=== PATIENT | female | born 2005 | race Two or more races ===

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

== ENCOUNTER 2023-05-30 18:18 | Emergency (ER) | payer MEDICAID ==
[~2023-05-30] VITALS: Ht 157.5 cm; Wt 60.2 kg
[~2023-05-30 18:18] MED LIST changes: +OMEP-434 PO
[2023-05-30 20:13] LABS: Basophils # (auto) 0 10 ^3/uL (0-0.2); Basophils % (auto) 0.5 % (0.0-2.0); Eosinophils # (auto) 0.2 10 ^3/uL (0-0.8); Eosinophils % (auto) 2.1 % (0.0-7.0); Hematocrit 39.5 % (36.0-46.0); Hemoglobin 13.6 g/dL (12.2-16.2); Lymphocytes # (auto) 2.8 10 ^3/uL (0.4-5.4); Mean Corpuscular Hemoglobin 32.2 pg (28.0-32.0); Mean Corpuscular Hgb Conc. 34.3 g/dL (32.0-36.0); Mean Corpuscular Volume 93.8 fL (80.0-100.0); Monocytes # (auto) 0.6 10 ^3/uL (0-1.3); Monocytes % (auto) 7.9 % (0.0-12.0); Neutrophils % (auto) 52.5 % (37.0-80.0); Red Blood Cells 4.22 10^6/uL (4.0-5.20); Red Cell Distribution Width 12.5 % (11.8-14.3); White Blood Cell 7.6 10^3/uL (4.4-10.8)
[2023-05-30 20:15] LABS: Urine Bacteria NONE SEEN /hpf (None Seen); Urine Blood 2+ /uL (Negative); Urine Clarity Clear (Clear); Urine Color Yellow (Yellow); Urine Mucus FEW (None Seen); Urine Protein, UAD 1+ (Negative); Urine Specific Gravity 1.032 (1.001-1.035); Urine WBC 3 /hpf (0 - 5)
[2023-05-30 20:43] LABS: Alanine Aminotransferase 12 U/L (7-40); Albumin 4.7 g/dL (3.2-4.8); Alkaline Phosphatase 50 U/L (46-116); Anion Gap 6.5 (5-15); Aspartate Aminotransferase < 8 U/L (13-40); BUN/Creatinine Ratio 13.5 (10.0-20.0); Bilirubin, Total 0.8 mg/dL (0.2-1.0); Blood Urea Nitrogen 12 mg/dL (9-23); Calcium 9.7 mg/dL (8.5-10.1); Carbon Dioxide 28.5 mmol/L (20-30); Chloride 105 mmol/L (98-107); Glucose 91 mg/dL (74-106); Lipase 36 U/L (12-53); Potassium 3.8 mmol/L (3.5-5.1); Sodium 140 mmol/L (136-145); Total Protein 7.1 g/dL (5.7-8.2)
[2023-05-30] MEDS ORDERED: DICY10CA PO (22:27)
[2023-05-30] MEDS ORDERED: FAMO20TA10 PO (22:27)
[2023-05-30] MEDS ORDERED: ZOFR4T PO (22:27)
[2023-05-30] MEDS ORDERED: CEPH500C PO (22:27)
[2023-05-30] MEDS ORDERED: ACETAMINOPHEN 325 MG TAB PO ONE (22:30)
[2023-05-30] MEDS ORDERED: DONNATAL 5ml ORAL Elix (BELLADONNA ALK-PHENOBARB) PO ONE (22:30)
[2023-05-30] MEDS ORDERED: LIDOCAINE VISCOUS 2% 15ML UD MT ONE (22:30)
[2023-05-30] MEDS ORDERED: MAALOX PLUS or MAALOX 30 ML PO ONE (22:30)
[2023-05-30] MEDS ORDERED: ONDANSETRON ODT 4 MG TAB PO ONE (22:30)
[2023-05-30 23:43] VITALS: BP 138/75; PULSE 68; RESP 16; TEMP 98.2; O2SAT 99
== END 2023-05-30 23:46 | disposition home or self-care (01) ==
LOC: ER 18:18
DX: N39.0 Urinary tract infection, site not specified (principal); K29.70 Gastritis, unspecified, without bleeding; R10.13 Epigastric pain; R10.33 Periumbilical pain; R11.2 Nausea with vomiting, unspecified; R19.7 Diarrhea, unspecified; Z79.899 Other long term (current) drug therapy
CPT/HCPCS: 36415; 74176; 80053; 81001; 83690; 85025; 99284; Q0162

== ENCOUNTER 2023-08-03 18:11 | Emergency (ER) | payer MEDICAID ==
[~2023-08-03] VITALS: Ht 157.5 cm; Wt 64.2 kg
[~2023-08-03 18:11] MED LIST changes: +CEPH500C PO; +DICY10CA PO; +FAMO20TA10 PO; +ZOFR4T PO
[2023-08-03 19:12] VITALS: BP 124/80; PULSE 76; RESP 16; TEMP 97.9; O2SAT 97
[2023-08-03] MEDS ORDERED: HYDROcodone-ACET 5/325MG TAB PO ONE (21:45)
[2023-08-03] MEDS ORDERED: IBUP1TAB5 PO (22:17)
[2023-08-03] MEDS ORDERED: CYCL-839 PO (22:17)
== END 2023-08-03 23:16 | disposition home or self-care (01) ==
LOC: ER 18:11
DX: S06.0X0A Concussion without loss of consciousness, initial encounter (principal); S13.9XXA Sprain of joints and ligaments of unspecified parts of neck, initial encounter; S43.402A Unspecified sprain of left shoulder joint, initial encounter; S20.212A Contusion of left front wall of thorax, initial encounter; S70.02XA Contusion of left hip, initial encounter; Z79.1 Long term (current) use of non-steroidal anti-inflammatories (NSAID); Z79.2 Long term (current) use of antibiotics; Z79.899 Other long term (current) drug therapy; V49.9XXA Car occupant (driver) (passenger) injured in unspecified traffic accident, initial encounter; Y93.89 Activity, other specified; Y92.410 Unspecified street and highway as the place of occurrence of the external cause; Y99.8 Other external cause status
CPT/HCPCS: 70450; 71250; 72125; 73030; 74176

== ENCOUNTER 2024-08-26 16:26 | Emergency (ER) | payer MEDICAID ==
[~2024-08-26] VITALS: Ht 182.9 cm; Wt 115.8 kg
[~2024-08-26 16:26] MED LIST changes: +CYCL-839 PO; +IBUP1TAB5 PO
--- NOTE | 2024-08-26 16:37 | ED.PDOC ---
GI ASSESSMENT HPI Comments 3 days of epigastric pain, with nausea, vomiting, diarrhea. no radiation. no sick contacts Chief Complaint: epigastric pain Time Seen by MD: 16:31 Primary Care Provider: NONE Reviewed Notes: Nurses Notes Allergies: Coded Allergies: NO KNOWN ALLERGIES (Unverified , 08/31/14) Home Meds Active Scripts Cyclobenzaprine Hcl (Cyclobenzaprine Hcl) 10 Mg Tab, 1 TAB PO Q8HR, #15 TAB As needed for muscle spasm Prov:FREDY POTTER Jaquelin [employer]TEGRITY ENGINEER 08/03/23 Ibuprofen Micronized (Ibuprofen) 600 Mg Tab, 1 TAB PO Q6HR, #20 TAB As needed for pain Prov:FREDY POTTER Q MECH[employer]ICAL INTEGRITY ENGINEER 08/03/23 Cephalexin Monohydrate (Cephalexin) 500 Mg Cap, 1 CAP PO QID for 10 Days, #40 CAP Prov:FREDY POTTER Jaquelin [employer] INTE[employer] ENGINEER 05/30/23 Famotidine (PEPCID TABLET) 20 Mg Tb, 1 TAB PO BID for 30 Days, #60 TAB Prov:FREDY POTTER Jaquelin [employer] INTE[employer] ENGINEER 05/30/23 Dicyclomine Hcl (BENTYL CAPSULE) 10 Mg Cp, 2 CAP PO Q8HR, #30 CAP as needed for abdominal cramping Prov:FREDY POTTER Jaquelin [employer]CH[employer] INTEGRITY ENGINEER 05/30/23 Ondansetron Odt 4MG Tab (ZOFRAN PO) 4 Mg Tb, 1 TAB PO Q8HR, #20 TAB ODT TAB-DISSOLVE IN MOUTH, THEN SWALLOW as needed for nausea vomiting Prov:FREDY POTTER Jaquelin [employer] INTE[employer] ENGINEER 05/30/23 Omeprazole Magnesium (Omeprazole) 20 Mg Tab, 40 MG PO DAILY, #30 TAB Prov:VIKI CANNON 12/22/22 Nitrofurantoin Monohydrate Mac (Macrobid) 100 Mg Cap, 100 MG PO BID for 5 Days, #10 CAP Prov:MICHELLE DONIS MD 10/23/21 Information Source: Patient, Relative (Mother) Mode of Arrival: Ambulatory Timing: Days (3) Duration: Since onset Quality: Aching Vomitus: Bilious Stool: Loose Severity: Moderate Recent: None Recent Hx of: None Pain Location: Epigastric Modifying Factors: Nothing Associated sign and symptoms: Nausea, Vomiting, Diarrhea Past Medical History PAST MEDICAL HISTORY: Seizures Surgical History: Denies all surgeries DAIRY LABORATORY TECHNICIAN History: No Pertinent DAIRY LABORATORY TECHNICIAN History Family History Family History: Reviewed,noncontributory to illness, Family hx of Cancer, Family hx of HTN Family History (Other): Seizure (sister of epileptic seizure) Social History Smoker: Non-Smoker Alcohol: Denies ETOH Use Drugs: Denies Drug Use Lives In: Home Constitutional: denies: chills, diaphoresis, fatigue, fever, malaise, sweats, weakness, others EENTM: denies: blurred vision, double vision, ear bleeding, ear discharge, ear drainage, ear pain, ear ringing, eye pain, eye redness, hearing loss, mouth pain, mouth swelling, nasal discharge, nose bleeding, nose congestion, nose pain, photophobia, tearing, throat pain, throat swelling, voice changes, others Respiratory: denies: cough, hemoptysis, orthopnea, SOB at rest, shortness of breath, SOB with excertion, stridor, wheezing, others Cardiovascular: denies: chest pain, dizzy spells, diaphoresis, Dyspnea on exertion, edema, irregular heart beat, left arm pain, lightheadedness, palpitations, PND, syncope, others Gastrointestinal: reports: abdominal pain, diarrhea, nausea, vomiting; denies: abdomen distended, blood streaked bowels, constipated, dysphagia, difficulty swallowing, hematemesis, melena, poor appetite, poor fluid intake, rectal bleeding, rectal pain, others Genitourinary: denies: abnormal vagina bleeding, burning, dyspareunia, dysuria, flank pain, frequency, hematuria, incontinence, pain, , vagina discharge, urgency, others Neurological: denies: dizziness, fainting, headache, left sided numbness, left sided weakness, numbness, paresthesia, pre-existing deficit, right sided numbness, right sided weakness, seizure, speech problems, tingling, tremors, weakness, others Musculoskeletal: denies: back pain, gout, joint pain, joint swelling, muscle pa in, muscle stiffness, neck pain, others Integumetry: denies: bruises, change in color, change in hair/nails, dryness, laceration, lesions, lumps, rash, wounds, others Allergic/Immunocompromised: denies: Difficulty Healing, Frequent Infections, Hives, Itching, others Hematologic/Lymphatic: denies: anemia, blood clots, easy bleeding, easy bruising, swollen glands, others Endocrine: denies: excessive hunger, excessive sweating, excessive thirst, excessive urination, flushing, intolerance to cold, intolerance to heat, unexplained weight gain, unexplained weight loss, others Psychiatric: denies: anxiety, bipolar disorder, depression, hopeless, panic disorder, schizophrenia, sleepless, suicidal, others All Other Systems: Reviewed and Negative Physical Exam General Appearance: No Apparent Distress, Normal HEENT: Normal ENT Inspection, Pharynx Normal, TMs Normal Neck: Full Range of Motion, Non-Tender, Normal, Normal Inspection Respiratory: Chest Non-Tender, Lungs Clear, No Accessory Muscle Use, No Respiratory Distress, Normal Breath Sounds Cardiovascular: No Edema, No JVD, No Murmur, No Gallop, Normal Peripheral Pulses, Regular Rate/Rhythm Breast Exam: Deferred Gastrointestinal: Epigastric, No Organomegaly, Non Tender, No Pulsatile Mass, Normal Bowel Sounds, Soft Genitalia: Deferred Pelvic: Deferred Rectal: Deferred Extremities: No calf tenderness, Normal capillary refill, Normal inspection, Normal range of motion, Non-tender, No pedal edema Musculoskeletal : Apperance: Normal Neurologic: Alert, first crusher II-XII nml as Tested, No Motor Deficits, Normal Affect, Normal Mood, No Sensory Deficits Cerebellar Function: Normal Reflexes: Normal Skin: Dry, Normal Color, Warm Lymphatic: No Adenopathy Was a procedure done? Was a procedure done?: No GI differential Dx Differential Diagnosis: Complete , Incomplete , Inevitable , Missed , Threatened , Abruptio placentae, Bowel Obstruction, Cholangitis, Cholecystitis, Constipation, Ectopic , Gastritis/PUD, Gastroenteritis, Hernia, Hepatitis, Ovarian cyst/torsion, Pancreatitis, UTI, Electrolyte Imbalance, Food Poisoning, , Bacterial, Parasitic, Viral, Hypovolemia, Impaction, Malnutrition X-Ray, Labs, Meds, VS Vital Signs Date Time Temp Pulse Resp B/P (MAP) Pulse Ox O2 Delivery O2 Flow Rate FiO2 08/26/24 22:22 97.5 57 20 130/73 (92) 99 97.5 08/26/24 22:16 97.1 50 16 128/75 (92) 100 97.1 08/26/24 16:35 98.8 67 18 120/81 (94) 98 Lab Test 08/26/24 17:53 08/26/24 16:00 Range/Units White Blood Count 7.3 4.4-10.8 10^3/uL Red Blood Count 4.54 4.0-5.20 10^6/uL Hemoglobin 15.1 12.2-16.2 g/dL Hematocrit 43.0 36.0-46.0 % Mean Corpuscular Volume 94.6 80.0-100.0 fL Mean Corpuscular Hemoglobin 33.2 H 28.0-32.0 pg Mean Corpuscular Hemoglobin Concent 35.1 32.0-36.0 g/dL Red Cell Distribution Width 13.0 11.8-14.3 % Platelet Count 273 140-450 10^3/uL Mean Platelet Volume 8.2 6.9-10.8 fL Neutrophils (%) (Auto) 78.4 37.0-80.0 % Lymphocytes (%) (Auto) 13.3 10.0-50.0 % Monocytes (%) (Auto) 7.2 0.0-12.0 % Eosinophils (%) (Auto) 0.9 0.0-7.0 % Basophils (%) (Auto) 0.2 0.0-2.0 % Neutrophils # (Auto) 5.8 1.6-8.6 10 ^3/uL Lymphocytes # (Auto) 1.0 0.4-5.4 10 ^3/uL Monocytes # (Auto) 0.5 0-1.3 10 ^3/uL Eosinophils # (Auto) 0.1 0-0.8 10 ^3/uL Basophils # (Auto) 0 0-0.2 10 ^3/uL Nucleated Red Blood Cells 0.1 % Sodium Level 141 136-145 mmol/L Potassium Level 4.0 3.5-5.1 mmol/L Chloride Level 104 98-107 mmol/L Carbon Dioxide Level 27 20-31 mmol/L Anion Gap 10 5-15 Blood Urea Nitrogen 8 L 9-23 mg/dL Creatinine 0.80 0.550-1.02 mg/dL Glomerular Filtration Rate Calc 107 >90 mL/min BUN/Creatinine Ratio 10.0 10.0-20.0 Serum Glucose 91 74-106 mg/dL Calcium Level 10.5 H 8.7-10.4 mg/dL Total Bilirubin 1.4 H 0.2-1.0 mg/dL Aspartate Amino Transferase (AST) 9 L 13-40 U/L Alanine Aminotransferase (ALT) 12 7-40 U/L Alkaline Phosphatase 53 46-116 U/L Total Protein 7.3 5.7-8.2 g/dL Albumin 5.1 H 3.2-4.8 g/dL Lipase 23 12-53 U/L Beta HCG, Quantitative 1.8 1.5-4.2 mIU/mL Urine Color Light-yellow Yellow Urine Clarity Clear Clear Urine pH 5.5 5.0-9.0 Urine Specific [place] 1.017 1.001-1.035 Urine Protein Negative Negative Urine Ketones 1+ H Negative Urine Blood Trace H Negative /uL Urine Nitrite Negative Negative Urine Bilirubin Negative Negative Urine Urobilinogen Normal Negative mg/dL Urine Leukocyte Esterase Negative Negative /uL Urine RBC 1 0 - 4 /hpf Urine WBC 1 0 - 5 /hpf Urine Squamous Epithelial Cells Few <5 /hpf Urine Bacteria Few H None Seen /hpf Urine Mucus Few None Seen Urine Glucose Normal Normal mg/dL Current Medications Medications (Trade) Dose Ordered Sig/Brenna Route Start Time Stop Time Status Last Admin Ondansetron HCl (Zofran Po) 4 mg ONCE ONCE PO 08/26/24 16:45 08/26/24 16:46 DC 08/26/24 22:27 Acetaminophen/ Hydrocodone Bitart ([place] 5/325MG Tab) 1 tab ONCE ONCE PO 08/26/24 16:45 08/26/24 16:46 DC 08/26/24 22:42 Time of 1ST Reevaluation: 22:48 Reevaluation 1ST: Improved Patient Education/Counseling: Diagnosis, Treatment, Prognosis, Need For Follow Up Family Education/Counseling: No Family Present Departure 1 Departure Time of Disposition: 22:46 Impression: Primary Impression: Biliary colic Additional Impression: Gallbladder sludge Disposition: 01 HOME / SELF CARE / HOMELESS Condition: Good Discharged With: Self Critical Care Note Critical Care Time?: No Stability Stability form required: JESS Andino MD Aug 26, 2024 16:37
--- NOTE | 2024-08-26 17:21 | DVH ---
ABDOMINAL ULTRASOUND CLINICAL HISTORY: epigastric pain TECHNIQUE: Multiple grayscale and color Doppler ultrasound images were obtained of the abdomen. WID: COMPARISON: CT chest abdomen pelvis from 08/03/2023 FINDINGS: Liver and Biliary System: Homogeneous echotexture, normal size measuring 16.1 cm. No focal hepatic observations. No intrahepatic bile duct dilatation. The common duct measures 0.4 cm at the alicia h epatis. The gallbladder is normal caliber and contains minimal sludge no gallbladder wall thickeni ng. Pancreas: Visualized portions are unremarkable. Kidneys: The right kidney is 10.6 cm . No hydronephrosis, increased echogenicity, shadowing stone, or focal lesion. IMPRESSION: Minimal gallbladder sludge. No acute cholecystitis or biliary ductal dilatation
[2024-08-26 17:25] LABS: Urine Bacteria FEW /hpf (None Seen); Urine Blood TRACE /uL (Negative); Urine Clarity Clear (Clear); Urine Color Light-Yellow (Yellow); Urine Mucus FEW (None Seen); Urine Protein, UAD Negative (Negative); Urine Specific Gravity 1.017 (1.001-1.035); Urine Squamous Epithelial Cell FEW /hpf (<5); Urine Urobilinogen Normal (Negative); Urine WBC 1 /hpf (0 - 5); Urine pH 5.5 (5.0-9.0)
[2024-08-26 18:22] LABS: Basophils # (auto) 0 10 ^3/uL (0-0.2); Basophils % (auto) 0.2 % (0.0-2.0); Eosinophils # (auto) 0.1 10 ^3/uL (0-0.8); Eosinophils % (auto) 0.9 % (0.0-7.0); Hemoglobin 15.1 g/dL (12.2-16.2); Lymphocytes % (auto) 13.3 % (10.0-50.0); Mean Corpuscular Hemoglobin 33.2 pg (28.0-32.0); Mean Corpuscular Hgb Conc. 35.1 g/dL (32.0-36.0); Mean Corpuscular Volume 94.6 fL (80.0-100.0); Monocytes # (auto) 0.5 10 ^3/uL (0-1.3); Monocytes % (auto) 7.2 % (0.0-12.0); Neutrophils # (auto) 5.8 10 ^3/uL (1.6-8.6); Neutrophils % (auto) 78.4 % (37.0-80.0); Nucleated Red Blood Cells % 0.1 %; Platelet Count (auto) 273 10^3/uL (140-450); Red Blood Cells 4.54 10^6/uL (4.0-5.20); White Blood Cell 7.3 10^3/uL (4.4-10.8)
[2024-08-26 18:38] LABS: Alanine Aminotransferase 12 U/L (7-40); Alkaline Phosphatase 53 U/L (46-116); Anion Gap 10 (5-15); Carbon Dioxide 27 mmol/L (20-31); Chloride 104 mmol/L (98-107); Glucose 91 mg/dL (74-106); Lipase 23 U/L (12-53); Sodium 141 mmol/L (136-145)
[2024-08-26 18:39] LABS: Albumin 5.1 g/dL (3.2-4.8); Aspartate Aminotransferase 9 U/L (13-40); Bilirubin, Total 1.4 mg/dL (0.2-1.0); Blood Urea Nitrogen 8 mg/dL (9-23); Calcium 10.5 mg/dL (8.7-10.4); Total Protein 7.3 g/dL (5.7-8.2)
[2024-08-26 22:22] VITALS: BP 130/73; PULSE 57; RESP 20; TEMP 97.5; O2SAT 99
[2024-08-26] MEDS: ONDANSETRON ODT 4 MG TAB PO ONE (22:27)
[2024-08-26] MEDS: HYDROcodone-ACET 5/325MG TAB PO ONE (22:42)
[2024-08-26] MEDS ORDERED: HYDR-4902 PO (23:42)
== END 2024-08-26 23:47 | disposition home or self-care (01) ==
LOC: ER 16:26
DX: K80.50 Calculus of bile duct without cholangitis or cholecystitis without obstruction (principal); K82.8 Other specified diseases of gallbladder; Z79.899 Other long term (current) drug therapy
CPT/HCPCS: 36415; 76705; 80053; 81001; 83690; 84702; 85025; 99284; Q0162